=== PATIENT | female | born 1985 | race Hispanic/Latino ===

== ENCOUNTER 2017-01-01 02:21 | Emergency (ER) | payer OTHER ==
[2017-01-01 02:53] LABS: #Lymphocytes 3.4 thou/uL (1.20-3.40); #Monocytes 0.5 thou/uL (0.11-0.59); #Neutrophils 11.4 thou/uL (1.40-6.50); %Basophils 0.3 % (0.0-1.0); %Eosinophils 0.2 % (0.0-10.0); %Lymphocytes 21.9 % (21.0-51.0); %Monocytes 3.2 % (0.0-10.0); Hematocrit 39.7 % (36.0-47.0); Mean Platelet Volume 7.1 fL (7.4-10.4); Red Blood Cell (RBC) Count 4.66 mill/uL (4.20-5.40); White Blood Cell (WBC) Count 15.3 thou/uL (4.8-10.8)
[2017-01-01 03:18] LABS: Bilirubin Negative (Negative); Blood, Urine Negative (Negative); Glucose, Urine (Dipstick) Negative (Negative); Ketone, Urine Negative (Negative); Nitrite Negative (Negative); Protein, Urine (Dipstick) Negative (Neg-Trace); Urobilinogen 0.2 mg/dL (0.2-1.0)
[2017-01-01 03:29] LABS: ALT (SGPT) 19 U/L (8-55); AST (SGOT) 21 U/L (5-34); Alkaline Phosphatase 135 U/L (40-150); Anion Gap 9 mmol/L (10-20); BUN (Urea Nitrogen) 8 mg/dL (7.0-18.7); Bilirubin, Total 0.3 mg/dL (0.2-1.2); Calc. Creatinine Clearance 0 mL/min (70-130); Calcium 9.4 mg/dL (7.8-10.44); Carbon Dioxide 29 mmol/L (22-29); Chloride 105 mmol/L (98-107); Estimated GFR-MDRD Greater than 90; Globulin 3.4 g/dL (2.4-3.5); Lipase 24 U/L (8-78); Protein, Total 7.7 g/dL (6.0-8.3)
== END 2017-01-01 03:58 | disposition left against medical advice (07) ==
LOC: ERS 02:21
DX: Z53.21 Procedure and treatment not carried out due to patient leaving prior to being seen by health care provider (principal)
CPT/HCPCS: 80053; 81003; 81025; 83690; 85025

== ENCOUNTER 2017-01-02 16:01 | Outpatient (CLI) | payer OTHER ==
--- NOTE | 2017-01-02 18:52 | ULT ---
RIGHT UPPER QUADRANT ULTRASOUND: Date: 01/02/17 HISTORY: Mid epigastric pain x2 days. Nausea and vomiting. COMPARISON: None. TECHNIQUE: Utilizing a multihertz transducer, sonographic imaging of the right upper quadrant is performed in th e longitudinal and transverse plane. FINDINGS: Suboptimal evaluation of the pancreas. Heterogeneous echotexture of the visualized hepatic parenchyma which may be due to hepatic steatosis or hepatocellular disease. Evaluation for hepatic masses and intrahepatic biliary dilatation is limit ed. Right hepatic lobe measures 16.6 cm. Main portal vein is patent. Appropriate direction of flow. Common bile duct diameter is 0.3 cm. There is sludge within the lumen of the gallbladder. Gallbladder wall is not thickened. No pericholec ystic fluid. Negative Motley's sign. Right Kidney; No hydronephrosis. 4.1 x 9.8 x 4.3 cm. No cortical masses. IMPRESSION: 1. Sludge within the lumen of the gallbladder. No sonographic evidence of cholecystitis. 2. Increased echogenicity of the liver which may be hepatic steatosis or hepatocellular disease. POS: [facility]
== END 2017-01-02 16:02 | disposition home or self-care (01) ==
LOC: ULT 16:01
PROVIDERS: ATTEND Family Medicine
DX: R10.11 Right upper quadrant pain (principal); K82.8 Other specified diseases of gallbladder
CPT/HCPCS: 76705

== ENCOUNTER 2017-01-10 15:58 | Outpatient (CLI) | payer OTHER | END 2017-01-10 15:59 | disposition home or self-care (01) | LOC: LABBT 15:58 | PROVIDERS: ATTEND Surgery | DX: Z01.812 Encounter for preprocedural laboratory examination (principal); K80.20 Calculus of gallbladder without cholecystitis without obstruction ==

== ENCOUNTER 2017-01-12 14:06 | Outpatient (CLI) | payer OTHER | END 2017-01-12 14:07 | disposition home or self-care (01) | LOC: LABBT 14:06 | PROVIDERS: ATTEND Surgery | DX: Z01.812 Encounter for preprocedural laboratory examination (principal); K80.20 Calculus of gallbladder without cholecystitis without obstruction | CPT/HCPCS: 84703 ==

== ENCOUNTER 2017-01-19 09:35 | Day surgery (SDC) | payer OTHER ==
[2017-01-12 14:26] VITALS: BMI 32.1
[~2017-01-19 09:35] MED LIST: Bupivacaine/Epinephrine 0.25% 30 ML VIAL ONE
[2017-01-19] MEDS ORDERED: Fentanyl 250 MCG/5 ML VIAL ONE (10:01)
[2017-01-19] MEDS ORDERED: CEFAZOLIN/Water 2 GM/20 ML SYRINGE ONE (10:06)
[2017-01-19] MEDS ORDERED: Midazolam HCl 2 mg/2 ml Vial ONE (10:11)
[2017-01-19 10:37] LABS: ALT (SGPT) 13 U/L (8-55); AST (SGOT) 19 U/L (5-34); Alkaline Phosphatase 123 U/L (40-150); Anion Gap 9 mmol/L (10-20); BUN (Urea Nitrogen) 8 mg/dL (7.0-18.7); Bilirubin, Total 0.6 mg/dL (0.2-1.2); Calc. Creatinine Clearance 136 mL/min (70-130); Calcium 9.7 mg/dL (7.8-10.44); Carbon Dioxide 25 mmol/L (22-29); Chloride 106 mmol/L (98-107); Estimated GFR-MDRD Greater than 90; Globulin 3.3 g/dL (2.4-3.5); Protein, Total 7.6 g/dL (6.0-8.3)
[2017-01-19] MEDS ORDERED: Fentanyl 100 MCG/2 ML VIAL ONE ×2 (11:43→13:17)
[2017-01-19] MEDS ORDERED: Promethazine HCl 25 MG/ML VIAL ONE (11:48)
--- NOTE | 2017-01-19 12:09 | PDOC.OP ---
Operative Note - Operative Note Operative Note: PROCEDURE: Laparoscopic cholecystectomy SURGEON: Bette Caballero M.D. DATE OF PROCEDURE: 01/19/2017 PREOPERATIVE DIAGNOSIS: Cholelithiasis and cholecystitis POSTOPERATIVE DIAGNOSIS: Cholelithiasis and cholecystitis HISTORY: Patient with recently diagnosed gallstones and ongoing episodes of epigastric right upper quadrant pain. Preoperative LFTs were normal and she does not have any bile duct dilatation on ultrasound. Laparoscopic cholecystectomy was recommended for symptomatic relief. FINDINGS: Distended gallbladder with adhesions to omentum and transverse mesocolon. PROCEDURE IN DETAIL: After informed consent was obtained and appropriate preoperative antibiotics were administered, the patient was taken to the operating room and placed in the supine position and general endotracheal anesthesia was administered. The stomach was decompressed with an OG tube and the abdomen was prepped and draped in standard sterile fashion. Local anesthesia was infused to the skin and subcutaneous tissues at the umbilical level. A transverse skin incision was made. The fascia was elevated and a Veress needle was placed into the abdominal cavity without difficulty. Opening pressure was less than 5 and carbon dioxide gas easily insufflated to an intra- abdominal pressure of 15, which the patient tolerated well. The Veress needle was withdrawn and a [place] port advanced under direct vision. The abdominal cavity was carefully examined. There was no evidence of Veress needle or of trocar injury. Local anesthesia was infused to the skin and subcutaneous tissues at the epigastric, right upper quadrant, and right lateral abdominal sites and trocars were placed under direct vision of the laparoscope. The fundus of the gallbladder was grasped and retracted superiorly. Adhesions between the gallbladder and the omentum and the mesocolon were noted. These were carefully taken down through the avascular plane using electrocautery as necessary. There was no electrocautery used in the vicinity of the colon. The infundibulum was grasped and retracted laterally. The serosa was stripped inferiorly at the level of the neck of the gallbladder exposing the cystic duct and artery which were traced clearly to their insertion in the gallbladder. Critical view of safety was obtained and the cystic duct and artery were clipped and divided between clips. The gallbladder was then dissected free of the gallbladder bed using hook electrocautery. Prior to complete removal of the gallbladder from the gallbladder bed, the area of the cystic duct and artery stumps was examined. The clips were in good position completely across these structures and there was no bleeding and no leakage of bile. The gallbladder was then placed into an EndoCatch bag and drawn out through the epigastric incision. The epigastric trocar was replaced and the operative site easily irrigated to clear. There was no significant bleeding or spillage of bile. The epigastric trocar was removed and the fascia closed under direct laparoscopic vision with a 0 Vicryl suture on a GraNee needle in a figure-of- eight manner with excellent technical result. The right upper quadrant and right lateral abdominal trocars were removed and hemostasis verified. Carbon dioxide gas was allowed to desufflate through the umbilical trocar which was then removed. The skin incisions were closed with 4-0 subcuticular Monocryl sutures and Dermabond dressings were placed. The patient was extubated and taken to the recovery room in good condition. There were no complications. ESTIMATED BLOOD LOSS: Minimal. SPECIMEN : Gallbladder and contents.
[2017-01-19] MEDS ORDERED: HYDROcodone/Acetaminophen 5/325 mg Tablet ONE (15:03)
[2017-01-19] MEDS ORDERED: Glycopyrrolate 0.2 MG/ML 5 ML SYRINGE ONE (15:13)
[2017-01-19] MEDS ORDERED: Propofol 200 MG/20 ML VIAL ONE (15:13)
[2017-01-19] MEDS ORDERED: ePHEDrine/0.9% NaCl/PF SYRINGE 50 mg/10 ml ONE (15:13)
[2017-01-19] MEDS ORDERED: Ondansetron HCl/PF 4 MG/2 ML Vial ONE (15:13)
[2017-01-19] MEDS ORDERED: Lidocaine 1% PF 5 ML VIAL ONE (15:13)
[2017-01-19] MEDS ORDERED: Dexamethasone 20 MG/5 ML VIAL ONE (15:13)
[2017-01-19] MEDS ORDERED: Ketorolac Tromethamine 30 MG/ML VIAL ONE (15:13)
== END 2017-01-19 15:32 | disposition home or self-care (01) ==
LOC: SDC 09:35
PROVIDERS: ATTEND Surgery
PROC: 0FT44ZZ Resection of Gallbladder, Percutaneous Endoscopic Approach (ICD-10-PCS; principal; 2017-01-19)
DX: K81.1 Chronic cholecystitis (principal); E03.9 Hypothyroidism, unspecified; F17.210 Nicotine dependence, cigarettes, uncomplicated; Z79.899 Other long term (current) drug therapy; Z88.8 Allergy status to other drugs, medicaments and biological substances; Z97.5 Presence of (intrauterine) contraceptive device; Z90.89 Acquired absence of other organs; Z98.890 Other specified postprocedural states
CPT/HCPCS: 80053; 88304; 96374; J0131; J1100; J1885; J2001; J2250; J2405; J2550; J2704; J3010

== ENCOUNTER 2017-05-25 13:57 | Outpatient (CLI) | payer OTHER ==
--- NOTE | 2017-05-25 14:49 | ULT ---
THYROID ULTRASOUND: 05/25/2017 HISTORY: Thyroid nodule. COMPARISON: None. TECHNIQUE: Multiplanar marin-scale sonographic imaging of the thyroid gland obtained. FINDINGS: There is no discrete thyroid nodule seen on either side. The thyroid isthmus is approximately 4 mm i n AP dimension, within normal limits. The right lobe measures 1.2 x 3.8 x 1.3 cm. The left lobe measures 1.3 x 4.1 x 1 cm. The thyroid pa renchyma is diffusely heterogeneous with no discrete thyroid nodule seen. IMPRESSION: Diffuse heterogeneous thyroid parenchyma with no discrete nodule seen. POS: [facility]
== END 2017-05-25 13:58 | disposition home or self-care (01) ==
LOC: ULT 13:57
PROVIDERS: ATTEND Obstetrics & Gynecology Reproductive Endocrinology
DX: E03.9 Hypothyroidism, unspecified (principal)
CPT/HCPCS: 76536

== ENCOUNTER 2018-05-28 14:59 | Emergency (ER) | payer OTHER ==
--- NOTE | 2018-05-28 17:14 | RAD ---
Left shoulder 3 views: 05/28/2018 COMPARISON: None HISTORY: Injury, trauma, pain FINDINGS: No widening of the acromioclavicular or coracoclavicular interspace. Postsurgical clips ove rlie the base of the neck on the right. No fracture or evidence of dislocation. IMPRESSION: No acute osseous abnormality.
== END 2018-05-28 17:28 | disposition home or self-care (01) ==
LOC: ERS 14:59
DX: S16.1XXA Strain of muscle, fascia and tendon at neck level, initial encounter (principal); M25.512 Pain in left shoulder; E05.90 Thyrotoxicosis, unspecified without thyrotoxic crisis or storm; V43.62XA Car passenger injured in collision with other type car in traffic accident, initial encounter

== ENCOUNTER 2018-11-22 10:02 | Outpatient (CLI) | payer OTHER ==
--- NOTE | 2018-11-22 11:10 | MRI ---
Cervical spine MRI without contrast: 11/22/2018 COMPARISON: None HISTORY: Thoracic outlet syndrome TECHNIQUE: Multiplanar multisequence MR imaging of cervical spine without contrast FINDINGS: The sagittal STIR imaging demonstrates no focal area of osseous marrow edema. Cervical vertebral body height and alignment is unremarkable. C2-3: Unremarkable C3-4: Unremarkable C4-5: Unremarkable C5-6: Mild disc bulge. No associated central canal or neural foraminal stenosis. C6-7: Unremarkable C7-T1: Unremarkable No focal area of abnormal signal intensity is identified within the cervical cord. IMPRESSION: No significant central canal or neural foraminal stenosis.
== END 2018-11-22 10:03 | disposition home or self-care (01) ==
LOC: BICMRI 10:02
PROVIDERS: ATTEND Psychiatry & Neurology Neurology
DX: G54.0 Brachial plexus disorders (principal)
CPT/HCPCS: 72141

== ENCOUNTER 2019-11-18 08:06 | Outpatient (CLI) | payer OTHER ==
--- NOTE | 2019-11-18 11:37 | MRI ---
MRI THORACIC SPINE NONCONTRAST: (MRI brachial plexus) DATE: 11/18/2019. HISTORY: A 34-year-old female with ICD-10: G54.0, thoracic outlet syndrome. FINDINGS: The cervical, upper thoracic, and midthoracic vertebral body heights are maintained, with normal bone marrow signal. No cord impingement in upper thoracic spine. Mid and lower T spine show no gross co rd compression, but evaluation is limited, because this was a brachial plexus scan rather than an act ual T-spine scan. Brachial plexus has no signal abnormality or extrinsic compression bilaterally IMPRESSION: negative. POS: [facility]
== END 2019-11-18 08:07 | disposition home or self-care (01) ==
LOC: BICMRI 08:06
PROVIDERS: ATTEND Orthopaedic Surgery Hand Surgery
DX: G54.0 Brachial plexus disorders (principal)
CPT/HCPCS: 72146

== ENCOUNTER 2020-05-14 13:06 | Outpatient (CLI) | payer OTHER | END 2020-05-14 13:07 | disposition home or self-care (01) | LOC: BICRAD 13:06 | PROVIDERS: ATTEND Family Medicine | DX: M54.5 Low back pain (principal) | CPT/HCPCS: 72100 ==

== ENCOUNTER 2024-12-09 02:49 | Emergency (ER) | payer BC ==
[2024-12-09 04:32] LABS: #Basophils 0.05 10x3/uL (0.0-0.2); #Eosinophils 0.22 10x3/uL (0.0-0.7); #Monocytes 0.54 10x3/uL (0.11-0.59); #Neutrophils 7.07 10x3/uL (1.40-6.50); %Basophils 0.4 % (0.0-1.0); %Eosinophils 1.9 % (0.0-10.0); %Lymphocytes 30.4 % (21.0-51.0); %Monocytes 4.7 % (0.0-10.0); %Neutrophils 62.3 % (42.0-75.0); Hematocrit 35.9 % (36.0-47.0); Hemoglobin 11.3 g/dL (12.0-16.0); Mean Corpuscular Hemoglobin 25.4 pg (27.0-31.0); Mean Corpuscular Volume 80.7 fL (78.0-98.0); Platelet Count 416 10x3/uL (130-400); Red Blood Cell (RBC) Count 4.45 mill/uL (4.20-5.40); White Blood Cell (WBC) Count 11.37 10x3/uL (4.8-10.8)
[2024-12-09 04:56] LABS: BHCG - Serum Negative (NEGATIVE); Pregs Control Background? CLEAR/WHITE (CLR/WHITE); Pregs Control Bar Appear? YES (CONTROL BAR)
[2024-12-09 05:11] LABS: ALT (SGPT) 12 U/L (Less than 34); AST (SGOT) 30 U/L (11-34); Albumin 4.0 g/dL (3.1-4.5); Alkaline Phosphatase 93 U/L (40-110); Anion Gap 12 mmol/L (10-20); BUN (Urea Nitrogen) 6 mg/dL (7.0-18.7); Bilirubin, Total 0.3 mg/dL (0.3-1.2); Calc. Creatinine Clearance 0 mL/min (70-130); Calcium 9.7 mg/dL (7.8-10.44); Carbon Dioxide 25 mmol/L (22-29); Chloride 106 mmol/L (98-107); Globulin 3.1 g/dL (2.4-3.5); Glucose 97 mg/dL (70-105); Magnesium 1.9 mg/dL (1.6-2.6); Potassium 3.7 mmol/L (3.5-5.1); Sodium 139 mmol/L (136-145)
[2024-12-09 05:24] LABS: Lipase 28 U/L (8-78)
== END 2024-12-09 06:05 | disposition home or self-care (01) ==
LOC: ERS 02:49
DX: M25.512 Pain in left shoulder (principal); E05.90 Thyrotoxicosis, unspecified without thyrotoxic crisis or storm; F17.210 Nicotine dependence, cigarettes, uncomplicated; Z79.890 Hormone replacement therapy
CPT/HCPCS: 71045; 80053; 83690; 83735; 84484; 84703; 85025; 93005